=== PATIENT | male | born 1980 | race Caucasian/White ===

== ENCOUNTER 2016-10-31 09:41 | Emergency (ER) | payer SELFPAY ==
[~2016-10-31] VITALS: Ht 185.4 cm; Wt 101.4 kg
[~2016-10-31 09:41] MED LIST: DOXY100T PO; TAMS0.4C67 PO
[2016-10-31 09:43] VITALS: BP 117/77; PULSE 82; RESP 15; TEMP 98.1; O2SAT 100
[2016-10-31] MEDS ORDERED: FLUT1SPR5 EACH NARE (09:57)
[2016-10-31] MEDS ORDERED: ALLE10TA PO (09:57)
--- NOTE | 2016-10-31 10:13 | PD ---
HPI Chief Complaint: Respiratory Symptoms Time Seen by Provider: 09:57 Travel History International Travel<30 days: No Contact w/Intl Traveler<30days: No Traveled to known affect area: No History of Present Illness HPI The patient is a 36-year-old male who presents to the emergency department for shortness of breath. Patient has a two-week history of intermittent shortness of breath which he describes as difficulty obtaining a deep breath. The patient states his symptoms are intermittent, will last 5-15 minutes, are not exertional in nature, and possibly exacerbated by allergies. The patient does have a history of significant allergies and takes Claritin and Flonase. The patient recently changed from Claritin to see her tach, however, this did not alleviate his symptoms. 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 The patient thinks his symptoms may be anxiety related. The patient denies any history of chronic tobacco use, smokes socially. The patient denies any history of coronary artery disease, hypertension, hyperlipidemia, diabetes, COPD, asthma, or significant early family medical history for CAD. The patient denies any exertional symptoms. PFSH Past Medical History Anxiety: Yes Diminished Hearing: No Immunizations Current: Yes Tetanus Vaccination: Unknown Influenza Vaccination: No ?: Not Past Surgical History Surgical History: No Previous Surgery Social History Alcohol Use: No (QUIT September,) Tobacco Use: No (QUIT September,) Substance Use: No Allergies-Medications (Allergen,Severity, Reaction): Coded Allergies: No Known Allergies (Unverified , 10/31/16) Reported Meds & Prescriptions Reported Meds & Active Scripts Active Reported Flonase Nasal Telephone (Fluticasone Nasal Telephone) 50 Mcg/Act Telephone 50 Mcg EACH NARE BID Allergy Relief (Loratadine) 10 Mg Tab 10 Mg PO DAILY Review of Systems Except as stated in HPI: all other systems reviewed are Neg General / Constitutional: No: Fever HENT: Positive: Sore Throat, Rhinitis, Congestion, No: Lightheadedness Cardiovascular: No: Chest Pain or Discomfort, Dyspnea on exertion Respiratory: Positive: Shortness of Breath, No: Cough, Wheezing Gastrointestinal: No: Nausea, Vomiting Skin: No Rash Neurologic: No: Weakness Physical Exam Narrative GENERAL: Awake, alert, 36-year-old male who appears his stated age and is in no acute respiratory distress. SKIN: Focused skin assessment warm/dry. HEAD: Atraumatic. Normocephalic. EYES: Pupils equal and round. No scleral icterus. No injection or drainage. ENT: No nasal bleeding or discharge. Cobblestoning consistent with postnasal drip. No exudate. NECK: Trachea midline. No JVD. CARDIOVASCULAR: Regular rate and rhythm. No murmur appreciated. RESPIRATORY: No accessory muscle use. Clear to auscultation. Breath sounds equal bilaterally. No wheezes, rale's, rhonchi. MUSCULOSKELETAL: No obvious deformities. No clubbing. No cyanosis. No edema. NEUROLOGICAL: Awake and alert. No obvious cranial nerve deficits. Motor grossly within normal limits. Normal speech. PSYCHIATRIC: Appropriate mood and affect; insight and judgment normal. Data Data Last Documented VS Vital Signs Date Time Temp Pulse Resp B/P Pulse Ox O2 Delivery O2 Flow Rate FiO2 10/31/16 10:41 68 16 131/71 99 Room Air 10/31/16 09:43 98.1 Orders Electrocardiogram (10/31/16 ) Chest, Single Ap (10/31/16 ) [facility] Medical Decision Making Medical Screen Exam Complete: Yes Emergency Medical Condition: Yes Medical Record Reviewed: Yes Interpretation(s) EKG reveals normal sinus rhythm with a rate of 74. Inverted T-wave in lead 3. Chest x-ray reveals no acute cardiopulmonary disease. Differential Diagnosis Differential diagnosis includes postnasal drip, allergies, anxiety, acute coronary syndrome, cardiomyopathy, congestive heart failure, pleural effusion, pneumonia, pulmonary embolism. Narrative Course Chest x-ray was obtained. EKG was ordered and interpreted. EKG is unremarkable. Chest x-ray reveals no acute cardiopulmonary disease. The patient's symptoms may be secondary to allergies and/or anxiety. The patient will be placed on a Medrol Dosepak. The patient is requesting something for anxiety, will be prescribed a few Xanax, he is advised to take one at onset of symptoms to see if it does improve his symptoms. However, is advised not to take a chronically as they can be addictive. The patient agrees and understands. The patient discharged home. Diagnosis Primary Impression: Dyspnea Qualified Code: R06.00 - Dyspnea, unspecified type Additional Impressions: Environmental allergies Anxiety Patient Instructions: General Instructions Additional Instructions: Medications as directed. Follow-up with her primary physician. Return if symptoms worsen or progress. Med/Other Pt SpecificInfo: Prescription(s) given Scripts Alprazolam (Xanax)0.5 Mg Tab0.5 Mg PO Q6H PRN (ANXIETY) #10 TAB Ref 0 Prov:Onofre Lainez MD 10/31/16 Methylprednisolone Dosepak (Medrol Dosepak)4 Mg Dspk4 Mg PO DIRECTED #1 DSPK Ref 0 Per Pharmacist direction Prov:Onofre Lainez MD 10/31/16 Disposition: 01 DISCHARGE HOME Condition: Stable Onofre Lainez MD Oct 31, 2016 10:13
[2016-10-31 10:41] VITALS: BP 131/71; PULSE 68; RESP 16; O2SAT 99
--- NOTE | 2016-10-31 10:45 | RADHPO ---
EXAM DATE/TIME: 10/31/2016 10:32 [facility] COMPARISON: CHEST SINGLE AP, February 06, 2016, 5:52. INDICATIONS : Short of breath MEDICAL HISTORY : None. SURGICAL HISTORY : None. ENCOUNTER: Initial ACUITY: 2 weeks PAIN SCORE: 0/10 LOCATION: Bilateral chest FINDINGS: The lungs are clear without infiltrate, nodule, or mass. There is no appreciable pleural effusion fo r technique. Heart and mediastinum are unremarkable. CONCLUSION: No acute cardiopulmonary disease. Jamila Rehman MD on October 31, 2016 at 10:43 Board Certified Radiologist. This report was verified electronically.
[2016-10-31] MEDS ORDERED: ALPR.5 PO (10:52)
[2016-10-31] MEDS ORDERED: MEDR4PAK PO (10:52)
--- NOTE | 2016-11-01 13:41 | EKG ---
Date Performed: 10/31/2016 Time Performed: 10:13:24 PTAGE: 36 years EKG: Sinus rhythm Poor R wave progression - probable normal variant Inferior T wave changes are nonspecific Since prev ious tracing, no significant change noted Borderline ECG PREVIOUS TRACING : 02/06/2016 05.41 DOCTOR: Graeme Tinsley Interpretating Date/Time 11/01/2016 13:40:40
== END 2016-10-31 11:18 | disposition home or self-care (01) ==
LOC: PHED 09:41
DX: R06.00 Dyspnea, unspecified (principal); J30.2 Other seasonal allergic rhinitis; F41.9 Anxiety disorder, unspecified; R94.31 Abnormal electrocardiogram [ECG] [EKG]; Z87.891 Personal history of nicotine dependence; Z86.59 Personal history of other mental and behavioral disorders
CPT/HCPCS: 71010; 93005